=== PATIENT | female | born 1995 | race Caucasian/White ===

== ENCOUNTER 2017-06-01 17:31 | Emergency (ER) | payer BC ==
[~2017-06-01] VITALS: Ht 157.5 cm; Wt 56.0 kg
[2017-06-01 17:33] VITALS: TEMP 37.8; Ht 157.5 cm; Wt 56.0 kg
[2017-06-01] MEDS ORDERED: ACETAMINOPHEN 325 MG TAB PO STA (18:07)
[2017-06-01] MEDS ORDERED: IBUPROFEN 600 MG TAB PO STA (18:07)
[2017-06-01] MEDS ORDERED: BCPILLS PO (18:25)
--- NOTE | 2017-06-01 18:42 | DIAGNOSTIC IMAGING REPORT ---
CHEST 2 VIEWS ROUTINE CLINICAL HISTORY: 21 years-old Female presenting with eval for PNA. TECHNIQUE: PA and lateral views of the chest were obtained. COMPARISON: None. FINDINGS: Cardiomediastinal silhouette normal. Lungs and pleural spaces clear. Osseous structures normal. Upper abdomen normal. IMPRESSION: 1. No acute cardiopulmonary disease. Electronically signed by: Oseas Christine M.D. 06/01/2017 6:41 PM Dictated Date/Time: 06/01/2017 6:40 PM
[2017-06-01 19:27] VITALS: BP 108/60; PULSE 74; O2SAT 98
--- NOTE | 2017-06-01 20:33 | EMERGENCY ROOM VISIT NOTE ---
History Report prepared by Sulema: Joel Harris Under the Supervision of: Dr. Wiley Mendenhall M.D. First contact with patient: 18:00 Chief Complaint: ILLNESS Stated Complaint: FEVER, NAUSEA, TREJO History of Present Illness The patient is a 21 year old female who presents to the Emergency Room with complaints of a persistent illness that started 3 and a half days ago. She says that she has been having a fever and sore throat, with a headache and nausea. She adds that she has had a bit of a cough and intermittent chest pain. She says that she has not eaten in 3 days. The patient states that she was seen at [facility] 2 days ago, and tested negative for strep and influenza. Her glands were noted to be swollen however. The patient says that she has been taking Tylenol for her fever, which reduces her temperature for a while, but it comes back up after a while. She notes that her temperature was 103.2 prior to arrival, so she decided to come here. The patient denies any rashes. She says that she has no chance of . She states that she has no history of mononucleosis, and she was told at [facility] that it was too early to test for it. Source of History: patient Onset: 3 and a half days ago Position: other (global - illness) Quality: other (negative strep, negative flu) Timing: other (persistent) Associated Symptoms: + fevers, + headache, + sorethroat, + cough, + chest pain, + nausea, No rash Note: Associated symptoms: Decreased appetite. Review of Systems See HPI for pertinent positives & negatives. A total of 10 systems reviewed and were otherwise negative. Past Medical & Surgical Medical Problems: (1) No chronic problems Family History No pertinent family history Social History Smoking Status: Never Smoker Marital Status: single Housing Status: lives with roommate Occupation Status: [employer] student Current/Historical Medications Scheduled Control Pills ( Control Pills), 1 TAB PO DAILY Allergies Coded Allergies: No Known Allergies (Unverified , 06/01/17) Physical Exam Vital Signs Date Time Temp Pulse Resp B/P (MAP) Pulse Ox O2 Delivery O2 Flow Rate FiO2 06/01/17 19:27 74 17 108/60 98 06/01/17 17:33 37.8 90 16 113/74 100 Room Air Physical Exam Constitutional: Vital signs reviewed. Well-appearing. Eyes: Pupils are equal round reactive to light. Conjunctiva are noninjected. ENT: Diffuse erythema to posterior oropharynx. No trismus or drooling. Anterior cervical lymphadenopathy, no posterior cervical lymphadenopathy. Mucous membranes are moist. Neck supple without meningeal signs. Respiratory: Clear to auscultation bilaterally. Breath sounds are equal bilaterally. Cardiovascular: Regular rate and rhythm. No rubs or gallops. GI: Soft, nondistended and nontender. Bowel sounds are present. No organomegaly. Musculoskeletal: No peripheral edema. No lower extremity tenderness. Integumentary: No cyanosis. Neurological: The patient is awake and alert. No focal deficits. Psychiatric: Normal affect. Medical Decision & Procedures ER Provider Diagnostic Interpretation: X-ray results as stated below per interpretation by me and the radiologist: CHEST 2 VIEWS ROUTINE CLINICAL HISTORY: 21 years-old Female presenting with eval for PNA. TECHNIQUE: PA and lateral views of the chest were obtained. COMPARISON: None. FINDINGS: Cardiomediastinal silhouette normal. Lungs and pleural spaces clear. Osseous structures normal. Upper abdomen normal. IMPRESSION: 1. No acute cardiopulmonary disease. Electronically signed by: Oseas Christine M.D. 06/01/2017 6:41 PM Dictated Date/Time: 06/01/2017 6:40 PM Medications Administered Medications (Trade) Dose Ordered Sig/Alyssa Route Start Time Stop Time Status Last Admin Dose Admin Acetaminophen (Tylenol Tab) 650 mg NOW STAT PO 06/01/17 18:07 06/01/17 18:08 DC 06/01/17 18:16 650 MG Ibuprofen (Motrin Tab) 600 mg NOW STAT PO 06/01/17 18:07 06/01/17 18:08 DC 06/01/17 18:15 600 MG ED Course 1801: The patient was evaluated in room C6. A complete history and physical exam was performed. 1807: Ordered Motrin Tab 600 mg PO, Tylenol Tab 650 mg PO. 1853: I reevaluated the patient and discussed the test results with her. The patient verbally expressed understanding and agreement of the treatment plan. The patient will be discharged. Medical Decision this is a 21-year-old female presents with sore throat and fever. Differential diagnosis includes viral pharyngitis, strep pharyngitis, infectious mononucleosis, bronchitis, pneumonia. I did perform a limited focused review of portions of the patient's old chart on the electronic medical record. The patient has had no prior visits. I did evaluate the patient as noted above. The patient is presenting with fever and sore throat. She has had headaches but has no meningeal signs and does not appear acutely ill. I did obtain a rapid strep test which was negative. A throat culture is pending. I did treat her with Tylenol and Motrin. She stated that there was no chance she was . I did order and personally review the patient's chest x-ray as described above. There is no evidence of infiltrate. I did discuss the test results with the patient. I did recommend [id number] remedies and follow with [facility]. She was discharged in good condition. Medication Reconcilliation Current Medication List: was personally reviewed by me Blood Pressure Screening Patient's blood pressure: Normal blood pressure Impression Primary Impression: Pharyngitis Scribe Attestation The scribe's documentation has been prepared under my direct and personally reviewed by me in its entirety. I confirm that the note above accurately reflects all work, treatment, procedures, and medical decision making performed by me. Departure Information Dispostion Home / Self-Care Referrals No Doctor, Assigned (PCP) [facility] Forms HOME CARE DOCUMENTATION FORM, IMPORTANT VISIT INFORMATION, WORK / SCHOOL INSTRUCTIONS Patient Instructions My [facility], Sore Throats Self Care Additional Instructions You have been examined and treated today on an emergency basis only. This is not a substitute for, or an effort to provide, complete comprehensive medical care. It is impossible to recognize and treat all injuries or illnesses in a single emergency department visit. It is therefore important that you follow up closely with your physician. Call as soon as possible for an appointment. Return for worsening symptoms or if you develop difficulty breathing, shortness of breath, rash, vomiting, or any other concerning symptoms. Problem Qualifiers Primary Impression: Pharyngitis Pharyngitis/tonsillitis etiology: unspecified etiology Qualified Codes: J02.9 - Acute pharyngitis, unspecified
== END 2017-06-01 19:27 | disposition home or self-care (01) ==
LOC: C.EDB 17:32 → C.EDC 19:27
DX: J02.9 Acute pharyngitis, unspecified (principal); R50.9 Fever, unspecified; R51 Headache; R11.0 Nausea; R05 Cough; Z79.3 Long term (current) use of hormonal contraceptives